=== PATIENT | female | born 1965 | race American Indian/Alaskan Native ===

== ENCOUNTER 2017-02-01 22:03 | Emergency (ER) | payer OTHER ==
[2017-02-01 22:09] VITALS: BP 124/87
[2017-02-01] MEDS ORDERED: Ciprofloxacin 500 MG Tab PO ONE ×2 (22:30→22:36)
[2017-02-01] MEDS ORDERED: Phenazopyridine 95 MG Tab PO ONE ×2 (22:30→22:36)
[2017-02-01] MEDS ORDERED: Phenazopyridine 95 MG Tab ONE (22:36)
[2017-02-01] MEDS ORDERED: Ciprofloxacin 500 MG Tab ONE (22:36)
--- NOTE | 2017-02-01 22:41 | EDM.PDOC ---
ED HPI GENERAL MEDICAL PROBLEM - General Chief Complaint: Genitourinary Problem Stated Complaint: URINARY PROBLEMS, [id number] Time Seen by Provider: 02/01/17 22:25 Source of Information: Reports: Patient History Limitations: Reports: No Limitations - History of Present Illness INITIAL COMMENTS - FREE TEXT/NARRATIVE: This 52 yo female patient reports to the ED with a 2 day history of dysuria and lower abdominal pain. Onset: Gradual Onset Date: 01/30/17 Duration: Constant Location: Reports: Abdomen Quality: Reports: Burning Severity: Mild Improves with: Reports: None Worsens with: Reports: None Associated Symptoms: Reports: No Other Symptoms Pelvic Pain Score (Numeric/FACES): 4 - Related Data Allergies Allergy/AdvReac Type Severity Reaction Status Date / Time No Known Allergies Allergy Verified 02/19/16 03:10 Home Meds: Home Meds Ibuprofen 800 mg PO PRN 10/23/13 [History] Past Medical History HEENT History: Reports: None Cardiovascular History: Reports: None Respiratory History: Reports: None Gastrointestinal History: Reports: None Genitourinary History: Reports: None 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: Musculoskeletal History: Reports: None Neurological History: Reports: None Psychiatric History: Reports: None Endocrine/Metabolic History: Reports: None Hematologic History: Reports: None Immunologic History: Reports: None Oncologic (Cancer) History: Reports: None Dermatologic History: Reports: None - Past Surgical History GI Surgical History: Reports: Cholecystectomy Social & Family History - Tobacco Use Smoking Status *Q: Heavy Tobacco Smoker Years of Tobacco use: 20 Packs/Tins Daily: 1 Used Tobacco, but Quit: No Second Hand Smoke Exposure: Yes - Alcohol Use Days Per Week of Alcohol Use: 0 - Recreational Drug Use Recreational Drug Use: No ED ROS GENERAL - Review of Systems Review Of Systems: ROS reveals no pertinent complaints other than HPI. ED EXAM, RENAL/ - Physical Exam Exam: See Below Exam Limited By: No Limitations General Appearance: Alert, WD/WN, Mild Distress Eye Exam: Bilateral Eye: EOMI, Normal Inspection, PERRL Ears: Normal External Exam, Normal Canal, Hearing Grossly Normal, Normal TMs Nose: Normal Inspection, Normal Mucosa, No Blood Throat/Mouth: Normal Inspection, Normal Lips, Normal Teeth, Normal Gums, Normal Oropharynx, Normal Voice, No Airway Compromise Head: Atraumatic, Normocephalic Neck: Normal Inspection, Supple, Non-Tender, Full Range of Motion Respiratory/Chest: No Respiratory Distress, Lungs Clear, Normal Breath Sounds, No Accessory Muscle Use, Chest Non-Tender Cardiovascular: Normal Peripheral Pulses, Regular Rate, Rhythm, No Edema, No Gallop, No JVD, No Murmur, No Rub GI/Abdominal: Normal Bowel Sounds, Soft, No Organomegaly, No Distention, No Abnormal Bruit, No Mass, Pelvis Stable, Tender (lower abdomen) (Female) Exam: Deferred Rectal (Female) Exam: Deferred Back Exam: Normal Inspection, Full Range of Motion, NT Extremities: Normal Inspection, Normal Range of Motion, Non-Tender, Normal Capillary Refill, No Pedal Edema Neurological: Alert, Oriented, CN II-XII Intact, Normal Cognition, Normal Gait, Normal Reflexes, No Motor/Sensory Deficits Psychiatric: Normal Affect, Normal Mood Skin Exam: Warm, Dry, Intact, Normal Color, No Rash Lymphatic: No Adenopathy Course - Vital Signs Last Recorded V/S: Last Vital Signs Temp 36.6 C 02/01/17 22:06 Pulse 94 02/01/17 22:06 Resp 16 02/01/17 22:06 BP 124/87 02/01/17 22:06 Pulse Ox 95 02/01/17 22:06 - Orders/Labs/Meds Labs: Laboratory Tests 02/01/17 02/01/17 Range/Units 22:09 22:09 Urine Color Yellow (YELLOW) Urine Appearance Cloudy (CLEAR) Urine pH 5.0 (5.0-9.0) Ur Specific [place] 1.025 (1.005-1.030) Urine Protein >=300 H (NEGATIVE) Urine Glucose (UA) 250 H (NEGATIVE) Urine Ketones Trace H (NEGATIVE) Urine Occult Blood Moderate H (NEGATIVE) Urine Nitrite Positive H (NEGATIVE) Urine Bilirubin Small H (NEGATIVE) Urine Urobilinogen 0.2 (0.2-1.0) mg/dL Ur Leukocyte Esterase Moderate H (NEGATIVE) Urine RBC >100 H /HPF Urine WBC >100 H (0-5/HPF) /HPF Ur Epithelial Cells Few /HPF Urine Bacteria Many H (0-FEW/HPF) /HPF Urine Opiates Screen Negative (NEGATIVE) Ur Oxycodone Screen Negative (NEGATIVE) Urine Methadone Screen Negative (NEGATIVE) Ur Barbiturates Screen Negative (NEGATIVE) U Tricyclic Antidepress Negative (NEGATIVE) Ur Phencyclidine Scrn Negative (NEGATIVE) Ur Amphetamine Screen Negative (NEGATIVE) U Methamphetamines Scrn Negative (NEGATIVE) Urine MDMA Screen Negative (NEGATIVE) U Benzodiazepines Scrn Negative (NEGATIVE) Urine Cocaine Screen Negative (NEGATIVE) U Marijuana (THC) Screen Negative (NEGATIVE) Meds: Medications Discontinued Medications Generic Name Dose Route Start Last Admin Trade Name Jaspreet PRN Reason Stop Dose Admin Ciprofloxacin 500 mg 02/01/17 22:30 Ciprofloxacin Hcl PO 02/01/17 22:31 ONETIME ONE Phenazopyridine HCl 190 mg 02/01/17 22:30 Urinary Pain Relief PO 02/01/17 22:31 ONETIME ONE Departure - Departure Time of Disposition: 22:36 Disposition: Home, Self-Care 01 Condition: Fair Clinical Impression: UTI, Urinary tract infectious disease - Discharge Information Instructions: Urinary Tract Infection, Adult, [id number] Forms: ED Department Discharge Care Plan Goals: The patient was advised of the examination and lab results during the visit. The patient was given an oral dose of Cipro and Pyridium while in the ED. The patient was discharged with a dose of Cipro (500 mg) to take in the morning and Pyridium (190 mg) to take in the morning. The patient was also given a script for Cipro (500 mg) #4 to take 1 by mouth BID until gone and Pyridium (200 mg) # 4 to take 1 by mouth 3 times per day as needed. If the patient has any additional symptoms or concerns, the patient should follow-up with her primary care provider or return to the emergency department.
== END 2017-02-01 22:46 | disposition home or self-care (01) ==
LOC: DL.ED 22:03
DX: N39.0 Urinary tract infection, site not specified (principal)
CPT/HCPCS: 80305; 81001; 87086; 99283; A9270; 87088; 87186

== ENCOUNTER → 2018-12-21 | Outpatient (CLI) | payer OTHER | LOC: DL.MRI 12:49 | PROVIDERS: ATTEND Physician Assistant Medical | DX: S89.91XA Unspecified injury of right lower leg, initial encounter (principal); S83.511A Sprain of anterior cruciate ligament of right knee, initial encounter; S82.141A Displaced bicondylar fracture of right tibia, initial encounter for closed fracture; M25.461 Effusion, right knee; M94.8X6 Other specified disorders of cartilage, lower leg; M22.41 Chondromalacia patellae, right knee; X58.XXXA Exposure to other specified factors, initial encounter | CPT/HCPCS: 73721-RT ==

== ENCOUNTER 2021-03-24 12:03 | Emergency (ER) | payer MEDICAID, OTHER ==
[2021-03-24 13:15] VITALS: BP 152/93; PULSE 57
--- NOTE | 2021-03-24 15:28 | EDM.PDOC ---
<Gisela Priest - Last Filed: 03/24/21 16:44> ED HPI GENERAL MEDICAL PROBLEM - General Chief Complaint: Cardiovascular Problem Stated Complaint: [id number] HIGH BLOOD PRESSURE Time Seen by Provider: 03/24/21 15:10 - Related Data Allergies Allergy/AdvReac Type Severity Reaction Status Date / Time No Known Allergies Allergy Verified 03/24/21 13:16 Home Meds: Home Meds . [No Known Home Meds] 04/20/18 [History] Course - Radiology Interpretation Free Text/Narrative:: Chest xray: [facility] Final Radiology Report Call: [phone] assistance Online chat: [email or web address] Name: SONYA SMALL Age: 56Years F Date: 03/24/2021 SSN: -- : [id number] Study: CR CHEST 1V FRONTAL Requesting Physician: Jagdish Hines Images: 1 Addl Studies: Provided Clinical History: chest pressure Contrast: Contrast Medium: Contrast Amount: Contrast Method: CONFIDENTIALITY STATEMENT This report is intended only for use by the referring physician, and only in accordance with law. If you received this in error, call [phone]. Page 1 of 1 PROCEDURE INFORMATION: Exam: XR Chest Exam date and time: 03/24/2021 3:46 PM Age: 56 years old Clinical indication: Other: Chest pain; Additional info: Chest pressure TECHNIQUE: Imaging protocol: XR of the chest. Views: 1 view. COMPARISON: No relevant prior studies available. FINDINGS: Lungs: No suspicious pulmonary nodules or areas of lung consolidation. Pleural spaces: Unremarkable. No pleural effusion. No pneumothorax. Heart/Mediastinum: Unremarkable. No cardiomegaly. Bones/joints: Degenerative joint disease acromioclavicular mild on the right. There is ageappropriate spondylosis of the spine. IMPRESSION: No active disease of the chest. Thank you for allowing us to participate in the care of your patient. Dictated and Authenticated by: Emre Walls MD 03/24/2021 4:24 PM Central Time ([place] & [place]) See rad report Departure - Departure Disposition: Home, Self-Care 01 Clinical Impression: Acid reflux Qualifiers: Esophagitis presence: esophagitis presence not specified Qualified Code(s): K21.9 - Gastro-esophageal reflux disease without esophagitis Instructions: Gastroesophageal Reflux Disease, Adult, [id number] Forms: ED Department Discharge Additional Instructions: Use over the counter antacids to help with your reflux. If any new symptoms or concerns develop contact your primary care facility or return to the ER. <Jagdish Hines - Last Filed: 03/24/21 16:50> ED HPI GENERAL MEDICAL PROBLEM - General Source of Information: Reports: Patient History Limitations: Reports: No Limitations - History of Present Illness INITIAL COMMENTS - FREE TEXT/NARRATIVE: 56 y/o F came to the ER concerned about her blood pressure. She states she that she has checked her blood pressure multiple times today and it has been in the 170's. She states that since 11 am today she has chest pressure and ligh theadedness. She has had some nausea and vomiting normal food particles today. SHe reports a hx of acid reflux but is not sure if the symptoms today are related to her reflux. The CP is intermittent, non radiating and 2/10. Is a type II diabetes, denies ford, vision prob, neck pn, abd pn, pelvic pn, diff voiding, extremity pain. 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: Musculoskeletal History: Reports: None Neurological History: Reports: None Psychiatric History: Reports: None Endocrine/Metabolic History: Reports: None Hematologic History: Reports: None Immunologic History: Reports: None Oncologic (Cancer) History: Reports: None Dermatologic History: Reports: None - Past Surgical History GI Surgical History: Reports: Cholecystectomy Social & Family History - Family History Family Medical History: No Pertinent Family History - Caffeine Use Caffeine Use: Reports: Coffee ED ROS GENERAL - Review of Systems Review Of Systems: Comprehensive ROS is negative, except as noted in HPI. ED EXAM, GENERAL - Physical Exam Exam: See Below Exam Limited By: No Limitations General Appearance: Alert, No Apparent Distress Nose: Normal Inspection, Normal Mucosa Throat/Mouth: Normal Inspection, Normal Lips, Normal Teeth, Normal Oropharynx, Normal Voice Head: Atraumatic, Normocephalic Neck: Normal Inspection, Supple, Non-Tender, Full Range of Motion Respiratory/Chest: No Respiratory Distress, Lungs Clear, Normal Breath Sounds, N o Accessory Muscle Use, Chest Non-Tender Cardiovascular: Normal Peripheral Pulses Peripheral Pulses: 2+: Radial (L), Radial (R) GI/Abdominal: Soft, Non-Tender (Female) Exam: Deferred Rectal (Female) Exam: Deferred Back Exam: Normal Inspection, Full Range of Motion Extremities: Normal Inspection, Normal Range of Motion, Non-Tender, Normal Capillary Refill, No Pedal Edema Neurological: Alert, Oriented Psychiatric: Normal Affect, Normal Mood Skin Exam: Warm, Dry, Intact #1 Interpretation EKG Date: 03/24/21 Time: 15:37 Rhythm: Other (sinus susy) [place]: Normal P-Wave: Present QRS: Normal ST-T: Normal QT: Normal Course - Vital Signs Last Recorded V/S: Last Vital Signs Temp 97.6 F 03/24/21 13:11 Pulse 57 L 03/24/21 13:11 Resp 14 03/24/21 13:11 BP 152/93 H 03/24/21 13:11 Pulse Ox 99 03/24/21 13:11 - Orders/Labs/Meds Orders: Active Orders 24 hr Category Date Time Status Peripheral IV Care [RC] . DIRECTED Care 03/24/21 15:29 Active Sodium Chloride 0.9% [Saline Flush] Med 03/24/21 15:29 Active 10 ml FLUSH ASDIRECTED PRN Peripheral IV Insertion Adult [OM.PC] Routine Oth 03/24/21 15:28 Ordered Medication Orders Sodium Chloride (Sodium Chloride 0.9% 10 Ml Syringe) 10 ml FLUSH ASDIRECTED PRN PRN Reason: Keep Vein Open Last Admin: 03/24/21 15:38 Dose: 10 ml Documented by: CHAD Labs: Laboratory Tests 03/24/21 03/24/21 03/24/21 Range/Units 15:36 15:36 15:36 WBC 10.0 (5.0-10.0) 10^3/uL RBC 4.58 (4.2-5.4) 10^6/uL Hgb 14.9 D (12.0-16.0) g/dL Hct 44.8 (37.0-47.0) % MCV 97.8 D (80-100) fL MCH 32.5 (27.0-34.0) pg MCHC 33.3 (33.0-35.0) g/dL Plt Count 237 (150-450) 10^3/uL Neut % (Auto) 60.5 (42.2-75.2) % Lymph % (Auto) 31.4 (20.5-50.1) % [place] % (Auto) 6.1 (2-8) % Eos % (Auto) 1.7 (1.0-3.0) % Baso % (Auto) 0.3 (0.0-1.0) % Sodium 140 (136-145) mmol/L Potassium 4.1 (3.5-5.1) mmol/L Chloride 104 (98-107) mmol/L Carbon Dioxide 26 (21-32) mmol/L Anion Gap 14.1 H (7-13) mEq/L BUN 11 (7-18) mg/dL Creatinine 0.71 (0.55-1.02) mg/dL Est Cr Clr Drug Dosing 109.82 mL/min Estimated GFR (MDRD) > 60 BUN/Creatinine Ratio 15.5 (No establ ref range) Glucose 109 H (70-99) mg/dL Calcium 9.3 (8.5-10.1) mg/dL Magnesium 2.1 (1.8-2.4) mg/dL Total Bilirubin 0.6 (0.2-1.0) mg/dL AST 13 L (15-37) U/L ALT 24 (14-59) U/L Alkaline Phosphatase 79 (46-116) U/L Troponin I High Sens 4 (<=51) pg/mL Total Protein 7.5 (6.4-8.2) g/dL Albumin 3.8 (3.4-5.0) g/dL Globulin 3.7 Albumin/Globulin Ratio 1.0 Amylase 46 (25-115) U/L Lipase 146 (73-393) U/L TSH, Ultra Sensitive 1.08 (0.36-3.74) uIU/mL Meds: Medications Generic Name Dose Route Start Last Admin Trade Name Freq PRN Reason Stop Dose Admin Sodium Chloride 10 ml 03/24/21 15:29 03/24/21 15:38 Sodium Chloride 0.9% 10 Ml Syringe FLUSH 10 ml ASDIRECTED PRN Administration Keep Vein Open - Re-Assessments/Exams Free Text/Narrative Re-Assessment/Exam: 03/24/21 16:48 ON re-assessment the pt is resting comfortably and has no complaints. The chest pressure resolved on its own after the pt burped. She believes that her symptoms were caused by her acid reflux. I will instruct her to purchase and use OTC antacids like she has done in the past to treat her intermittent symptoms. Departure - Departure Time of Disposition: 16:45 Condition: Good Sepsis Event Note (ED) - Focused Exam Vital Signs: Vital Signs Temp Pulse Resp BP Pulse Ox 03/24/21 13:11 97.6 F 57 L 14 152/93 H 99 - My Orders Last 24 Hours: My Active Orders 03/24/21 15:28 Peripheral IV Insertion Adult [OM.PC] Routine 03/24/21 15:29 Peripheral IV Care [RC] . DIRECTED Sodium Chloride 0.9% [Saline Flush] 10 ml FLUSH ASDIRECTED PRN - Assessment/Plan Last 24 Hours: My Active Orders 03/24/21 15:28 Peripheral IV Insertion Adult [OM.PC] Routine 03/24/21 15:29 Peripheral IV Care [RC] . DIRECTED Sodium Chloride 0.9% [Saline Flush] 10 ml FLUSH ASDIRECTED PRN
[2021-03-24] MEDS ORDERED: Sodium Chloride 0.9% 10 ML Syringe FLUSH PRN (15:29)
[2021-03-24 16:05] LABS: ANION GAP 14.1 mEq/L (7-13); CHLORIDE,CL 104 mmol/L (98-107); SODIUM,NA 140 mmol/L (136-145)
--- NOTE | 2021-03-24 16:25 | CR ---
PROCEDURE INFORMATION: Exam: XR Chest Exam date and time: 03/24/2021 3:46 PM Age: 56 years old Clinical indication: Other: Chest pain; Additional info: Chest pressure TECHNIQUE: Imaging protocol: XR of the chest. Views: 1 view. COMPARISON: No relevant prior studies available. FINDINGS: Lungs: No suspicious pulmonary nodules or areas of lung consolidation. Pleural spaces: Unremarkable. No pleural effusion. No pneumothorax. Heart/Mediastinum: Unremarkable. No cardiomegaly. Bones/joints: Degenerative joint disease acromioclavicular mild on the right. There is age-appropriate spondylosis of the spine. IMPRESSION: No active disease of the chest.
== END 2021-03-24 17:00 | disposition home or self-care (01) ==
LOC: DL.ED 12:03
DX: K21.9 Gastro-esophageal reflux disease without esophagitis (principal); I10 Essential (primary) hypertension
CPT/HCPCS: 36415; 71045; 80053; 82150; 83690; 83735; 84443; 84484; 85025; 93005; 99285-25

== ENCOUNTER 2022-09-10 00:48 | Emergency (ER) | payer MEDICARE ==
[2022-09-10] MEDS ORDERED: Acetaminophen/HYDROcodone 325-10 MG Tab PO ONE (00:49)
[2022-09-10] MEDS ORDERED: Lidocaine 2% Viscous Solution 15 ML UD PO ONE (00:49)
[2022-09-10] MEDS ORDERED: Clindamycin HCl 150 MG Cap PO ONE (01:03)
[2022-09-10] MEDS ORDERED: Lidocaine 2% Viscous Solution 15 ML UD ONE (01:10)
[2022-09-10] MEDS ORDERED: Acetaminophen/HYDROcodone 325-10 MG Tab ONE (01:21)
[2022-09-10 01:30] VITALS: BP 175/90; PULSE 58
== END 2022-09-10 01:26 | disposition home or self-care (01) ==
LOC: DL.ED 00:48
DX: K02.9 Dental caries, unspecified (principal); I10 Essential (primary) hypertension
CPT/HCPCS: 99282; A9270

== ENCOUNTER 2023-07-29 17:45 | Emergency (ER) | payer MEDICARE ==
[2023-07-29 19:07] VITALS: BP 169/86; PULSE 75
[2023-07-29] MEDS: Ketorolac 30 MG/ML SDV IM ONE (19:12)
== END 2023-07-29 19:25 | disposition home or self-care (01) ==
LOC: DL.ED 17:45
DX: S32.020A Wedge compression fracture of second lumbar vertebra, initial encounter for closed fracture (principal); S89.92XA Unspecified injury of left lower leg, initial encounter; I10 Essential (primary) hypertension; W00.0XXA Fall on same level due to ice and snow, initial encounter
CPT/HCPCS: 72100; 73562-LT; 96372; 99282; 99283; J1885